=== PATIENT | male | born 1970 | race African-American/Black ===

== ENCOUNTER 2016-07-17 04:40 | Emergency (ER) | payer OTHER ==
[2016-07-17 05:17] VITALS: PULSE 76; TEMP 97.8; BMI 26.6
[2016-07-17] MEDS ORDERED: METOPROLOL TARTRATE 50 MG TABLET (FP) ONE (05:35)
[2016-07-17] MEDS ORDERED: METOPROLOL TARTRATE 50 MG TABLET (FP) PO ONE (05:35)
--- NOTE | 2016-07-17 05:35 | PDOC ---
History of Present Illness - General History Source: Patient Exam Limitations: No Limitations - History of Present Illness Initial Comments: 07/17/16 06:00 The patient is a 46 year old male with significant past medical history of hypertension, hyperlipidemia and gerd who presents to the ED for eye itchiness, pain, redness and some swelling prior to arrival. Patient reports he was in his usual state of health prior to going to bed last night when he was awoken from his sleep with the sensation of itchiness and pressure behind the eyes. States never experiencing this in the past. Denies headache. Patient reports the pressure behind his eyes endorses nausea and slight blurred vision. Denies vomiting. He does not wear glasses. Also reports pressure in the nose. Denies nasal congestion or rhinorrhea. The patient denies fever, chills, cough, SOB, chest pain, abdominal pain and diarrhea. Allergies: NKDA Social History: No alcohol, tobacco, or drug use reported. Past Surgical History: None reported PCP: Dr. Florence Villaseñor <Whitley Kearney - Last Filed: 07/17/16 06:39> - General History Source: Patient <Deric Ngo - Last Filed: 07/17/16 07:03> - General Chief Complaint: Allergic Reaction Stated Complaint: EYE PROBLEM Time Seen by Provider: 07/17/16 05:35 Past History <Whitley Kearney - Last Filed: 07/17/16 06:39> - Past Medical History Cardiac Disorders: Yes (PT. CANNOT DESCRIBE/CVA,TIA) CVA: Yes GI Disorders: Yes (GERD) HTN: Yes Hypercholesterolemia: Yes - Surgical History Cardiac Surgery: Yes (ANGIOCATH) - Psycho/Social/Smoking Cessation Hx Suicidal Ideation: No Smoking History: Unknown if ever smoked Have you smoked in the past 12 months: No Information on smoking cessation initiated: No Hx Alcohol Use: No Drug/Substance Use Hx: No Substance Use Type: None Hx Substance Use Treatment: No <Deric Ngo - Last Filed: 07/17/16 07:03> - Past Medical History Allergies/Adverse Reactions: Allergies Allergy/AdvReac Type Severity Reaction Status Date / Time No Known Allergies Allergy Verified 07/17/16 06:30 Home Medications: Ambulatory Orders Atorvastatin Ca [Lipitor] 40 mg PO HS 11/07/14 Metoprolol Tartrate [Lopressor] 100 mg PO DAILY 11/07/14 Aspirin [Ecotrin] 81 mg PO DAILY #0 11/08/14 Loratadine [Claritin -] 10 mg PO DAILY 11/08/14 Omeprazole [Prilosec (RX)] 20 mg PO BID #0 11/08/14 Review of Systems - Review of Systems Able to Perform ROS?: Yes Comments:: 07/17/16 06:02 CONSTITUTIONAL: Absent: fever, no chills, no fatigue EYES: +eye itchiness, pain, redness, some swelling and some blurred vision ENT: +pressure in the nose Absent: ear pain, no sore throat CARDIOVASCULAR: Absent: chest pain, no palpitations RESPIRATORY: Absent: cough, no SOB GI: +nausea Absent: abdominal pain, no vomiting, no constipation, no diarrhea GENITOURINARY: Absent: dysuria, no frequency, no hematuria MUSCULOSKELETAL: Absent: back pain, no arthralgia, no myalgia SKIN: Absent: rash NEURO: Absent: headache <Whitley Kearney - Last Filed: 07/17/16 06:39> *Physical Exam - Vital Signs Last Vital Signs Temp Pulse Resp BP Pulse Ox 97.8 F 76 18 144/108 97 07/17/16 05:12 07/17/16 05:12 07/17/16 05:12 07/17/16 05:12 07/17/16 05:12 - Physical Exam Comments: 07/17/16 06:02 GENERAL: Well-appearing, well-nourished. Mild distress. HEENT: Normocephalic, atraumatic. PERRL, EOM intact. Photophobia. Bilateral eye erythema, lacrimation, no discharge CARDIOVASCULAR: Normal S1, S2. Regular rate and rhythm. PULMONARY: Clear to auscultation bilaterally. ABDOMEN: Soft, non-distended, non-tender. EXTREMITIES: Normal ROM in all four extremities. No gross deformities. SKIN: Warm, dry. No rash NEUROLOGICAL: No focal neurological deficits. <Whitley Kearney - Last Filed: 07/17/16 06:39> - Vital Signs Last Vital Signs Temp Pulse Resp BP Pulse Ox 97.8 F 76 18 144/108 97 07/17/16 05:12 07/17/16 05:12 07/17/16 05:12 07/17/16 05:12 07/17/16 05:12 <Deric Ngo - Last Filed: 07/17/16 07:03> ED Treatment Course - RADIOLOGY Radiograph Interpretation: 07/17/16 06:39 EXAM: CT brain without contrast Reviewed by Imaging front desk team member: FINDINGS: No acute intracranial abnormality. No hemorrhage. No visible infarct or mass. Small density in the periphery of the left temporal lobe measures 134 Hounsfield units on thin coronal sections and is therefore calcium and not blood. Lateral ventricles are asymmetric in size. This is usually a congenital phenomenon. - Medications Given in the ED: ED Medications Discontinued Medications Generic Name Dose Route Start Last Admin Trade Name Freq PRN Reason Stop Dose Admin Metoprolol Tartrate 50 mg 07/17/16 05:35 07/17/16 05:38 Lopressor - PO 07/17/16 05:36 50 mg ONCE ONE Administration <Whitley Kearney - Last Filed: 07/17/16 06:39> Medical Decision Making - Medical Decision Making 07/17/16 07:03 Dr. Ngo: The scribe's documentation has been prepared under my direction and personally reviewed by me in its entirery. I confirm that the note above accurately reflects all work, treatment, procedures, and medical decision making performed by me. <Deric Nog - Last Filed: 07/17/16 07:03> *DC/Admit/Observation/Transfer - Attestations Scribe Attestion: 07/17/16 06:02 Documentation prepared by Whitley Kearney, acting as medical art therapist for Deric Ngo MD/DO. <Whitley Kearney - Last Filed: 07/17/16 06:39> - Discharge Dispostion Admit: No <Deric Ngo - Last Filed: 07/17/16 07:03> Diagnosis at time of Disposition: Conjunctivitis Qualifiers: Conjunctivitis type: unspecified Laterality: bilateral Qualified Code(s): H10.9 - Unspecified conjunctivitis - Discharge Dispostion Disposition: HOME Condition at time of disposition: Stable - Referrals Referrals: Florence Andrews MD [Primary Care Provider] - Roc Bryan MD [Staff Physician] - - Patient Instructions Printed Discharge Instructions: DI for Conjunctivitis Additional Instructions: Keep hand clean and dry. Use medication three times a day. Follow up with the doctor referred to you today by Thursday if symptoms don't improve Print Language: KYRGYZ
[2016-07-17] MEDS ORDERED: MECLIZINE HCL 25 MG TABLET (FP) PO STA (06:07)
[2016-07-17] MEDS ORDERED: MECLIZINE HCL 25 MG TABLET (FP) ONE (06:08)
[2016-07-17] MEDS ORDERED: CIPROFLOXACIN HCL 0.3% OPHTH 2.5ML BOTTLE ONE (06:58)
[2016-07-17] MEDS ORDERED: CIPROFLOXACIN 0.3% EYE DROPS 5 ML BOTTLE OU SCH (07:00)
[2016-07-17 07:07] VITALS: BP 123/81
== END 2016-07-17 07:13 | disposition home or self-care (01) ==
LOC: JER 04:40
DX: H10.33 Unspecified acute conjunctivitis, bilateral (principal); I10 Essential (primary) hypertension; E78.00 Pure hypercholesterolemia, unspecified; K21.9 Gastro-esophageal reflux disease without esophagitis; Z86.73 Personal history of transient ischemic attack (TIA), and cerebral infarction without residual deficits
CPT/HCPCS: 70450-TC; 99282-25

== ENCOUNTER 2016-11-13 05:27 | Observation (INO) | payer OTHER ==
[2016-11-13] MEDS ORDERED: morphine CARPU-JECT 2 MG/1 ML DISP.SYRIN IVPUSH ONE (05:56)
[2016-11-13] MEDS ORDERED: SODIUM CHLORIDE 1,000 ML IV STA (05:56)
[2016-11-13] MEDS ORDERED: ONDANSETRON 4 MG/2 ML VIAL IVPUSH ONE (05:56)
--- NOTE | 2016-11-13 06:00 | PDOC ---
ED Treatment Course - LABORATORY CBC & Chemistry Diagram: 11/13/16 05:56 11/13/16 11:50 Medical Decision Making - Medical Decision Making 11/13/16 06:00 agree with care from PILOT PLANT OPERATOR HELPER Oj *DC/Admit/Observation/Transfer Diagnosis at time of Disposition: Chest pain - Discharge Dispostion Condition at time of disposition: Stable
[2016-11-13 06:06] LABS: BASOPHIL 0.5 % (0-2.0); EOSINOPHIL 1.5 % (0-4.5); MCH 30.7 pg (25.7-33.7); MCHC 34.2 g/dl (32.0-35.9); MEAN CELL VOLUME 89.8 fl (80-96); MEAN PLT VOLUME 8.3 fl (7.5-11.1); PLATELET COUNT 178 K/MM3 (134-434); RDW 12.9 % (11.9-15.9)
[2016-11-13 06:18] LABS: INR 1.06 (0.82-1.09); PROTHROMBIN TIME (PATIENT) 11.7 SEC (9.98-11.88)
[2016-11-13] MEDS ORDERED: ONDANSETRON 4 MG/2 ML VIAL ONE (06:19)
[2016-11-13] MEDS ORDERED: morphine CARPU-JECT 2 MG/1 ML DISP.SYRIN ONE (06:19)
[2016-11-13 06:21] LABS: ACTIVATED PTT 37.5 SECONDS (26.9-34.4)
[2016-11-13 06:29] LABS: ALBUMIN 3.9 g/dl (3.4-5.0); ANION GAP 8 (8-16); BILIRUBIN,TOTAL 0.5 mg/dL (0.2-1.0); CALCIUM 8.5 mg/dL (8.5-10.1); CO2 25 mmol/L (21-32); GLUCOSE,RANDOM 103 mg/dL (74-106); SGOT/AST 16 U/L (15-37); SGPT/ALT 50 U/L (12-78); TOT PROT 6.8 g/dl (6.4-8.2)
[2016-11-13] MEDS ORDERED: ASPIRIN 81 MG CHEWABLE TABLETS PO ONE (06:30)
--- NOTE | 2016-11-13 06:31 | PDOC ---
History of Present Illness - General Chief Complaint: Chest Pain Stated Complaint: PAIN UNDER ARM Time Seen by Provider: 11/13/16 05:39 History Source: Patient, Dietary Worker Used Exam Limitations: Language Barrier - History of Present Illness Initial Comments: 11/13/16 06:27 46yo Male patient w/ PmHx: HTN, HLD, 1 Stent placement (2000) presents to ED c/ o CP with left arm pain, sweating and nausea which began at 11pm, but worsened throughout the night. Patient states traveling to [facility] 6 months ago, return 1 month ago. He states he does not have a PCP at this time. Patient also took 2 baby ASA prior to arrival. He denies Abd pain, vomiting, diarrhea, fever , diff breathing, rash, or any other complaints at this time. Presenting Symptoms: Chest Pain, Nausea Timing/Duration: reports: constant, getting worse Severity/Quality: reports: mild Location: reports: substernal, back Chest Pain Radiation: reports: back Activities at Onset: reports: no specific activity Prior Chest Pain/Cardiac Workup: reports: Cardiac Cath Modifying Factors: worse with: antacids, breathing, coughing, defecating, eating , exercise, lying down, morphine, movement, nitroglycerin, oxygen, palpation, rest, other Nitro Today/Relief: No: no nitro taken today, 0.4 mg x 1, 0.4 mg x 2, 0.4 mg x 3 , 0.4 mg x 4, provided by EMS, provided by ED, provided at home, no relief, mild relief, complete relief Aspirin Received prior to arrival (Core Measure): Yes: 81 mg x 2, provided at home ASA Contraindications (Core Measure): No: Allergy, Other, Active Blding w/i 24 hrs., Plavix, Receiving Warfarin Beta John given by EMS (Core Measure): No Beta John taken at Home (Core Measure): No Past History - Travel Traveled outside of the country in the last 30 days: No Close contact w/someone who was outside of country & ill: No - Past Medical History Allergies/Adverse Reactions: Allergies Allergy/AdvReac Type Severity Reaction Status Date / Time No Known Allergies Allergy Verified 07/17/16 06:30 Home Medications: Ambulatory Orders Aspirin [Ecotrin] 81 mg PO DAILY #0 11/08/14 Metoprolol Tartrate 50 mg PO BID 08/31/17 Cardiac Disorders: Yes (PT. CANNOT DESCRIBE/CVA,TIA) CVA: Yes GI Disorders: Yes (GERD) HTN: Yes Hypercholesterolemia: Yes - Surgical History Cardiac Surgery: Yes (ANGIOCATH) - Immunization History Immunization Up to Date: No - Psycho/Social/Smoking Cessation Hx Suicidal Ideation: No Smoking History: Never smoked Have you smoked in the past 12 months: No Number of Cigarettes Smoked Daily: 0 Information on smoking cessation initiated: No Hx Alcohol Use: No Drug/Substance Use Hx: No Substance Use Type: None Hx Substance Use Treatment: No Cardiac Specific PMH - Complaint Specific PMHX Abdominal Aortic Aneurysm: No Angina: No Cardiac Arrhythmia: No Cardiac Stent: Yes GERD: No Myocardial Infarction: Yes Pacemaker: No Pulmonary Embolus: No Valvular Heart Disease: No Peripheral Vascular Disease: No Review of Systems - Review of Systems Able to Perform ROS?: Yes Is the patient limited Slovenian proficient: Yes Constitutional: No: Chills, Fever Respiratory: No: Cough, Shortness of Breath, SOB with Exertion, Wheezing Cardiac (ROS): Yes: Chest Pain, Chest Tightness. No: Edema, Irregular Heart Rate, Lightheadedness, Palpitations, Syncope ABD/GI: Yes: Nausea. No: Constipated, Diarrhea, Poor Appetite, Poor Fluid Intake, Vomiting : No: Dysuria, Discharge, Flank Pain, Hematuria, Urgency Musculoskeletal: No: Back Pain Integumentary: Yes: Sweating. No: Bruising, Erythema Neurological: No: Headache, Numbness, Paresthesia, Seizure, Tingling, Tremors, Weakness, Unsteady Gait, Ataxia All Other Systems: Reviewed and Negative *Physical Exam - Vital Signs Last Vital Signs Temp Pulse Resp BP Pulse Ox 97.3 F L 85 16 136/93 100 11/13/16 05:57 11/13/16 05:57 11/13/16 05:57 11/13/16 05:57 11/13/16 05:57 - Physical Exam General Appearance: Yes: Nourished, Appropriately Dressed. No: Apparent Distress, Mild Distress, Moderate Distress, Severe Distress HEENT: positive: EOMI, LUCHO, Normal ENT Inspection, Normal Voice, Symmetrical, TMs Normal, Pharynx Normal. negative: Pharyngeal Erythema, Tonsillar Exudate, Tonsillar Erythema, Nasal Congestion, Rhinorrhea, Sinus Tenderness, TM Bulging, TM Dull, TM Erythema Neck: positive: Trachea midline, Supple. negative: Tender, Normal Thyroid, Rigid, Decreased range of motion, Stridor, Lymphadenopathy (R), Lymphadenopathy (L), Tender lateral, Tender midline Respiratory/Chest: positive: Lungs Clear, Normal Breath Sounds. negative: Chest Tender, Respiratory Distress, Accessory Muscle Use, Labored Respiration, Rapid RR Cardiovascular: positive: Regular Rhythm, Regular Rate Gastrointestinal/Abdominal: positive: Normal Bowel Sounds, Soft. negative: Increased Bowel Sounds, Distended, Guarding, Rebound, Tenderness Musculoskeletal: positive: Normal Inspection. negative: CVA Tenderness Extremity: positive: Normal Capillary Refill, Normal Inspection, Normal Range of Motion. negative: Pedal Edema, Swelling, Calf Tenderness, Erythema, Inflammation Integumentary: positive: Normal Color, Dry, Warm Neurologic: positive: block press operator II-XII NML intact, Fully Oriented, Alert, Normal Mood/ Affect, Normal Response, Motor Strength /5 ED Treatment Course - LABORATORY CBC & Chemistry Diagram: 11/13/16 05:56 11/13/16 05:56 - ADDITIONAL ORDERS Additional order review: Laboratory Results 11/13/16 11/13/16 05:56 05:56 INR 1.06 PTT (Actin FS) 37.5 H Sodium 140 Potassium 3.4 L Chloride 107 Carbon Dioxide 25 Anion Gap 8 BUN 22 H Creatinine 1.0 Creat Clearance w eGFR > 60 Random Glucose 103 Calcium 8.5 Total Bilirubin 0.5 AST 16 ALT 50 Alkaline Phosphatase 83 Creatine Kinase 196 Troponin I < 0.02 Total Protein 6.8 Albumin 3.9 TSH 2.48 11/13/16 05:56 RBC 4.59 MCV 89.8 MCHC 34.2 RDW 12.9 MPV 8.3 Neutrophils % 45.0 Lymphocytes % 43.5 H Monocytes % 9.5 Eosinophils % 1.5 Basophils % 0.5 - RADIOLOGY Radiology Studies Ordered: Category Date Time Status CHEST X-RAY PORTABLE* [RAD] Stat Radiology 11/13/16 05:56 Taken - Medications Given in the ED: ED Medications Discontinued Medications Generic Name Dose Route Start Last Admin Trade Name Freq PRN Reason Stop Dose Admin Aspirin 162 mg 11/13/16 06:30 11/13/16 06:45 Asa - PO 11/13/16 06:31 162 mg ONCE ONE Administration Morphine Sulfate 2 mg 11/13/16 05:56 11/13/16 06:28 Morphine Injection - IVPUSH 11/13/16 05:57 2 mg ONCE ONE Administration Ondansetron HCl 4 mg 11/13/16 05:56 11/13/16 06:28 Zofran Injection IVPUSH 11/13/16 05:57 4 mg ONCE ONE Administration Potassium Chloride 40 meq 11/13/16 06:48 11/13/16 06:52 K-Dur - PO 11/13/16 06:49 40 meq ONCE ONE Administration *DC/Admit/Observation/Transfer Diagnosis at time of Disposition: Chest pain Qualifiers: Chest pain type: unspecified Qualified Code(s): R07.9 - Chest pain, unspecified - Discharge Dispostion Condition at time of disposition: Fair Admit: Yes
[2016-11-13 06:37] LABS: ALK PHOS 83 U/L (45-117); CPK 196 IU/L (39-308); THYROID STIMULATING HORMONE 2.48 uIU/ml (0.358-3.74); TROPONIN I < 0.02 ng/ml (0.00-0.05)
[2016-11-13] MEDS ORDERED: ASPIRIN 81 MG CHEWABLE TABLETS ONE (06:45)
[2016-11-13] MEDS ORDERED: POTASSIUM CHLORIDE TABS 20 MEQ TABLET.ER (FP) PO ONE ×2 (06:48→06:50)
[2016-11-13] MEDS ORDERED: ACETAMINOPHEN 325 MG TABLET (FP) ONE (08:35)
--- NOTE | 2016-11-13 08:37 | HP ---
Admitting History and Physical - Primary Care Physician PCP: Florence Andrews - Admission Chief Complaint: left sided chest pain History of Present Illness: HPI: This 46 year old male with pmhx of HTN, HLD, ASHD s/p [place] x2 stents, ? stents placed to RLE 2000 during angioplasty, presented the ED with left lateral chest pain which began last night. The patient was in his usual state of health when all of a sudden he has left lateral side point tenderness. Currently, in the ED he diaphoretic with chills and shaking. No fever or nausea, vomiting. His pain is acute and localized to under his axilla and is constant. He denies trauma, use of heavy machinery, use of alcohol, smoking, illicit drug use, recent bug bites, difficulty breathing, sob. ED Course: 1. Trop x1 negative 2. EKG sinus rima with non specific t wave abnormality 3. Morphine -->did not alleviate pain, would not give NSAIDs given CAD History Source: Patient, Family Member Limitations to Obtaining History: Language Barrier (lithuanian: used interpretor [id number]) - Past Medical History Cardiovascular: Yes: HTN, Hyperlipdemia - Past Surgical History Additional Past Surgical History: 2000 R lower extremity angioplasty ([place]) - Smoking History Smoking history: Never smoked Have you smoked in the past 12 months: No Aproximately how many cigarettes per day: 0 - Alcohol/Substance Use Hx Alcohol Use: No History of Substance Use: reports: None - Social History Usual Living Arrangement: Yes: With Spouse ADL: Independent Occupation: cook History of Recent Travel: No Home Medications - Allergies Allergies/Adverse Reactions: Allergies Allergy/AdvReac Type Severity Reaction Status Date / Time No Known Allergies Allergy Verified 07/17/16 06:30 - Home Medications Home Medications: Ambulatory Orders Aspirin [Ecotrin] 81 mg PO DAILY #0 11/08/14 Metoprolol Tartrate 50 mg PO BID 11/13/16 Review of Systems - Review of Systems Constitutional: reports: Chills Eyes: reports: No Symptoms HENT: reports: No Symptoms Neck: reports: No Symptoms Cardiovascular: reports: Chest Pain Respiratory: reports: No Symptoms Gastrointestinal: reports: No Symptoms Genitourinary: reports: No Symptoms Musculoskeletal: reports: No Symptoms Integumentary: reports: No Symptoms Neurological: reports: No Symptoms Endocrine: reports: No Symptoms Hematology/Lymphatic: reports: No Symptoms Psychiatric: reports: No Symptoms Physical Examination Vital Signs: Vital Signs Temperature 97.8 F 11/13/16 07:54 Pulse Rate 52 L 11/13/16 07:54 Respiratory Rate 20 11/13/16 07:54 Blood Pressure 152/97 11/13/16 07:54 O2 Sat by Pulse Oximetry (%) 100 11/13/16 07:54 Constitutional: Yes: Diaphoresis Eyes: Yes: Other HENT: Yes: Atraumatic (eye lid swelling) Neck: Yes: Supple Cardiovascular: Yes: Regular Rate and Rhythm, Bradycardia, Other (left lateral reproducible chest tenderness) Respiratory: Yes: Regular, CTA Bilaterally Gastrointestinal: Yes: Normal Bowel Sounds, Soft Musculoskeletal: Yes: WNL Extremities: Yes: WNL Edema: No Peripheral Pulses WNL: Yes Integumentary: Yes: WNL Neurological: Yes: Alert, Oriented, Cran Nerves II-XII Intact Psychiatric: Yes: Alert, Oriented Labs: CBC, BMP 11/13/16 05:56 11/13/16 05:56 Imaging - Results X-ray: Report Reviewed, Image Reviewed EKG: Report Reviewed Problem List - Problems (1) Chest pain Code(s): R07.9 - CHEST PAIN, UNSPECIFIED Qualifiers: Chest pain type: unspecified Qualified Code(s): R07.9 - Chest pain, unspecified (2) HTN (hypertension) Code(s): I10 - ESSENTIAL (PRIMARY) HYPERTENSION (3) HLD (hyperlipidemia) Code(s): E78.5 - HYPERLIPIDEMIA, UNSPECIFIED Assessment/Plan Assessment: 46 year old male admitted with left lateral chest pain Plan: 1. Chest pain vs costochondritis vs pericarditis - Pain is reproducible - r/o ACS repeat trop @1200 - ECHO today - Telemetry monitoring - Would not give NSAIDs, or steroids - Trial Tylenol prn pain vs additional aspirin prn pain - Well Cleaner Dr. Kaur will obtain records from office 2. HTN - Metoprolol 50mg BID 3. HLD - Simvastatin 80mg HS Visit type - Emergency Visit Emergency Visit: Yes ED Registration Date: 11/13/16 Care time: The patient presented to the Emergency Department on the above date and was hospitalized for further evaluation of their emergent condition. - New Patient This patient is new to me today: Yes Date on this admission: 11/13/16 - Critical Care Critical Care patient: No
[2016-11-13] MEDS: ACETAMINOPHEN 325 MG TABLET (FP) PO PRN ×2 (08:39→18:33)
[2016-11-13 09:08] LABS: URINE APPEARANCE CLEAR; URINE BILIRUBIN NEGATIVE (NEGATIVE); URINE BLOOD 1+ (NEGATIVE); URINE COLOR LTYELLOW; URINE GLUCOSE (UA) NEGATIVE (NEGATIVE); URINE KETONE NEGATIVE (NEGATIVE); URINE LEUK ESTERASE NEGATIVE (NEGATIVE); URINE NITRITE NEGATIVE (NEGATIVE); URINE PROTEIN NEGATIVE (NEGATIVE); URINE UROBILINOGEN NEGATIVE mg/dL (0.2-1.0)
[2016-11-13 09:20] LABS: URINE MUCUS RARE; URINE RBC <1 /hpf (0-3); URINE WBC 1 /hpf (3-5)
[2016-11-13] MEDS ORDERED: ASPIRIN COATED 81 MG TABLET.EC ONE (09:44)
[2016-11-13] MEDS ORDERED: HEPARIN NA (PORCINE) 5,000 UNITS/ML 1ML VIAL ONE (09:45)
[2016-11-13] MEDS: HEPARIN NA (PORCINE) 5,000 UNITS/ML 1ML VIAL SQ SCH ×2 (09:55→18:29)
[2016-11-13] MEDS ORDERED: ASPIRIN COATED 81 MG TABLET.EC PO SCH (10:00)
[2016-11-13] MEDS ORDERED: METOPROLOL TARTRATE 50 MG TABLET (FP) PO SCH ×2 (10:00)
--- NOTE | 2016-11-13 10:41 | CON.CARD ---
Consult Consult Specialty:: cardiology Reason for Consultation:: chest pain - History of Present Illness Chief Complaint: Pt sitting up in bed; no chest pain since he "received an injection in the belly" (Lovenox) History of Present Illness: 46yo Male patient ([facility]) w/ PmHx: HTN, HLD, ?one or two coronary Stents placement (2000), family hx CAD (father had CABG in his 60s, several weeks ago after ?2nd [place]; sister in her sleep at 60 yrs old of "the heart"), anxiety, presents to ED c/o left anterior CP with left arm pain, sweating and nausea which began at 11pm, waking him up, and worsened throughout the night. He has had this type of pain (moderately intense, stabbing, worse if he moves left arm) relatively frequently over the past several months. He works part-time as a cook; the pain can start at rest, but also while working. He wonders if it is related to indigestion he often gets. He does little in the way of exercise, and says he is "lazy". Patient states traveling to [facility] 6 months ago, returned 1 month ago. He states he does not have a PCP at this time. Patient also took 2 baby ASA prior to arrival. Pt's say pt's father several weeks ago in [facility]; pt has been depressed since then. Presenting Symptoms: Chest Pain, Nausea Timing/Duration: reports: constant, getting worse Severity/Quality: reports: mild Location: reports: substernal, back Chest Pain Radiation: reports: back Activities at Onset: reports: no specific activity Prior Chest Pain/Cardiac Workup: reports: Cardiac Cath - History Source History Provided By: Patient, Family Member, Medical Record Limitations to Obtaining History: No Limitations - Past Medical History Cardio/Vascular: Yes: HTN, Hyperlipdemia Pulmonary: No: Asthma Psych: Yes: Anxiety, Depression - Past Surgical History Past Surgical History: Yes: Stent - Alcohol/Substance Use Hx Alcohol Use: No History of Substance Use: reports: None - Smoking History Smoking history: Never smoked Have you smoked in the past 12 months: No Aproximately how many cigarettes per day: 0 - Social History Usual Living Arrangement: With Spouse ADL: Independent Occupation: cook History of Recent Travel: No Home Medications - Allergies Allergies/Adverse Reactions: Allergies Allergy/AdvReac Type Severity Reaction Status Date / Time No Known Allergies Allergy Verified 07/17/16 06:30 - Home Medications Home Medications: Ambulatory Orders Aspirin [Ecotrin] 81 mg PO DAILY #0 11/08/14 Metoprolol Tartrate 50 mg PO BID 11/13/16 Family Disease History - Family Disease History Family Disease History: Heart Disease: Father ([place]; CABG in his 60s; recently in his 80s of ?[place]), Sister ( in her sleep at 60 yrs old) Review of Systems - Review of Systems Constitutional: reports: No Symptoms Eyes: reports: No Symptoms HENT: reports: No Symptoms Neck: reports: No Symptoms Cardiovascular: reports: Chest Pain Respiratory: reports: No Symptoms Gastrointestinal: reports: Indigestion Genitourinary: reports: No Symptoms Breasts: reports: No Symptoms Reported Musculoskeletal: reports: Other (chronic bilateral pains throughout legs when he walks; he says this has been worked up, and is due to "arthritis") Integumentary: reports: No Symptoms Neurological: reports: No Symptoms Endocrine: reports: No Symptoms Hematology/Lymphatic: reports: No Symptoms Psychiatric: reports: Anxiety, Depression - Risk Factors Known Risk Factors: Yes: Age, Family History, Gender, Hypercholesterolemia, Hypertension, Physical Inactivity Vital Signs: Vital Signs Temperature 98.1 F 11/13/16 09:57 Pulse Rate 76 11/13/16 09:57 Respiratory Rate 18 11/13/16 09:57 Blood Pressure 115/91 11/13/16 09:57 O2 Sat by Pulse Oximetry (%) 97 11/13/16 09:57 Constitutional: Yes: Anxious Eyes: Yes: WNL HENT: Yes: WNL Neck: Yes: WNL Respiratory: Yes: WNL Gastrointestinal: Yes: WNL Cardiovascular: Yes: Regular Rate and Rhythm JVD: No Carotid Bruit: No PMI: Non-Displaced Heart Sounds: Yes: S1, S2, S4 Musculoskeletal: Yes: Muscle Pain Extremities: Yes: WNL Edema: No Peripheral Pulses WNL: Yes Integumentary: Yes: WNL Neurological: Yes: WNL Psychiatric: Yes: WNL - Other Data Labs, Other Data: CBC, BMP 11/13/16 05:56 11/13/16 05:56 INR, PTT INR 1.06 (0.82-1.09) 11/13/16 05:56 Troponin, BNP 11/13/16 05:56 Troponin I < 0.02 Troponin, BNP 11/13/16 05:56 Troponin I < 0.02 Abnormal Lab Results 11/13/16 11/13/16 11/13/16 05:56 05:56 05:56 Lymphocytes % 43.5 H PTT (Actin FS) 37.5 H Potassium 3.4 L Chloride BUN 22 H Calcium Urine Blood 11/13/16 11/13/16 09:00 11:50 Lymphocytes % PTT (Actin FS) Potassium Chloride 110 H BUN Calcium 8.2 L Urine Blood 1+ H Ejection Fraction %: LVEF > or = 40 % Imaging - Results Chest X-ray: Image Reviewed (no acute pathology) Ultrasound: Report Reviewed (normal LVEF on ECHO; mild valvular disease) Problem List - Problems (1) Chest pain Assessment/Plan: Atypical presentation (off and on for months; point-like chest pain worsened with movement, may last for days.). TNI < 0.02 x 2; EKG unchanged from office EKG (NSR; nonspecific T wave changes). Plan: stress treadmill test today; if negative, may be followed up as oupt from cardiac standpoint. Addendum: stress treadmill showed good exercise capacity and tolerance; mildly suboptimal HR achieved, likely due to beta blockers. No evidence of myocardial ischemia or arrhythmias. F/u lipids. F/u as outpatient. Code(s): R07.9 - CHEST PAIN, UNSPECIFIED Qualifiers: Chest pain type: unspecified Qualified Code(s): R07.9 - Chest pain, unspecified (2) HLD (hyperlipidemia) Code(s): E78.5 - HYPERLIPIDEMIA, UNSPECIFIED (3) HTN (hypertension) Assessment/Plan: on metoprolol. f/u BP and HR serially. Code(s): I10 - ESSENTIAL (PRIMARY) HYPERTENSION (4) S/P coronary angiogram Assessment/Plan: 2001: ? 1-2 coronary PCIs.
--- NOTE | 2016-11-13 11:09 | EKG ---
Test Reason : Blood Pressure : / mmHG Vent. Rate : 054 BPM Atrial Rate : 054 BPM P-R Int : 140 ms QRS Dur : 078 ms QT Int : 464 ms P-R-T Axes : 052 045 043 degrees QTc Int : 440 ms SINUS BRADYCARDIA OTHERWISE NORMAL ECG WHEN COMPARED WITH ECG OF 06-APR-2001 11:13, MINIMAL CRITERIA FOR INFERIOR INFARCT ARE NO LONGER PRESENT NONSPECIFIC T WAVE ABNORMALITY HAS REPLACED INVERTED T WAVES IN INFERIOR LEADS Confirmed by ISABEL SHARMA, GUNNER ([id number]) on 11/13/2016 11:09:33 AM Referred By: Confirmed By:GUNNER HALL MD
[2016-11-13] MEDS ORDERED: ASPIRIN 325 MG ENTERIC COATED TABLET (FP) PO SCH (12:26)
[2016-11-13 12:29] LABS: ANION GAP 9 (8-16); CALCIUM 8.2 mg/dL (8.5-10.1); CO2 23 mmol/L (21-32); CREATININE 0.8 mg/dL (0.7-1.3); GLUCOSE,RANDOM 104 mg/dL (74-106)
[2016-11-13 12:31] LABS: TROPONIN I < 0.02 ng/ml (0.00-0.05)
[2016-11-13 12:34] LABS: CPK 239 IU/L (39-308)
--- NOTE | 2016-11-13 15:43 | TRE ---
Protocol Name : NEEL Max Work Load (METS*10) : 130 Time In Exercise Phase : 00:10:47 Max. Systolic BP : 128 mmHg Max Diastolic BP : 80 mmHg Max Heart Rate : 134 BPM Max Predicted Heart Rate : 174 BPM Attending Physician : Reason For Termination : Fatigue Reason for Test : CHEST PAIN Stress Protocol : NEEL Rest HR : 56 BPM PeakEx METs : 13.0 METS Recovery ECG Response (OLD) : Diagnosis : Patient exercised 10:47 minutes reaching 77% MPHR, 13 mets. Patient is on metoprolol and at baseline had sinus bradycardia and this likely resulted in the blunted HR response to exercise. No chest pain or anginal symptoms, exercise stopped due to fatigue. Normal BP response to exercise. No ischemic ecg changes or arrhythmias. No ischemic ecg findings at heart rate achieved (only 77% MPHR). Confirmed by GUNNER HALL MD (2014) on 11/13/2016 3:43:22 PM
[2016-11-13 17:59] VITALS: BP 113/68; PULSE 57; TEMP 98.7; BMI 29.3
--- NOTE | 2016-11-13 18:31 | DS ---
Physical Exam: SUBJECTIVE: Patient seen and examined. See H and P OBJECTIVE: Vital Signs Period Temp Pulse Resp BP Sys/Donnelly Pulse Ox Last 24 Hr 97.8 F-98.7 F 52-76 17-20 111-152/68-97 97-100 See H and P Laboratory Results - last 24 hr 11/13/16 11/13/16 09:00 11:50 Sodium 142 Potassium 4.7 D Chloride 110 H Carbon Dioxide 23 Anion Gap 9 BUN 18 Creatinine 0.8 Random Glucose 104 Calcium 8.2 L Creatine Kinase 239 Creatine Kinase Index 0.5 CK-MB (CK-2) 1.2 Troponin I < 0.02 Urine Color Ltyellow Urine Appearance Clear Urine pH 7.0 Ur Specific [place] 1.015 Urine Protein Negative Urine Glucose (UA) Negative Urine Ketones Negative Urine Blood 1+ H Urine Nitrite Negative Urine Bilirubin Negative Urine Urobilinogen Negative Ur Leukocyte Esterase Negative Urine RBC <1 Urine WBC 1 Urine Mucus Rare HOSPITAL COURSE: Date of Admission:11/13/16 Date of Discharge: 11/13/16 Minutes to complete discharge: 37 Discharge Summary Reason For Visit: CHEST PAIN Current Active Problems Chest pain (Acute) HLD (hyperlipidemia) (Acute) HTN (hypertension) (Acute) S/P coronary angiogram (Acute) Hospital Course: Initial Hospital Course: Briefly, this 46 year old male with pmhx of HTN, HLD, ASHD s/p [place] x2 stents, ? stents placed to RLE 2000 during angioplasty vs coronary, presented the ED with left lateral/anterior chest pain which began last night with sweating and nausea which worsened arount 2am. The patient was in his usual state of health when all of a sudden he has left lateral side point tenderness. While in ED with chills and shaking. His pain is acute and localized to under his axilla and is constant. Pt has family hx of CAD father CABG in 60's, sister of [place] in her sleep Per cardiology eval pt pain is stabbing and worsened with moving his left arm pain is at rest and while cooking. Subsequent hospital Course/Discharge Summary: Atypical CP vs costochondritis - Serial trops negative - Lipid panel f/u as outpt (drawn here) - Stress test treadmill showed good exercise capacity and tolerance; mildly sub optimal HR achieved, likely due to beta blockers. No evidence of myocardial ischemia or arrhythmias. - Outpt follow up with Dr. Kaur, aware of plan - Resume home medications as directed - Tylenol PRN pain, aware Condition: Stable - Instructions Diet, Activity, Other Instructions: Please return for any, new, persistent, or worsening symptoms. Follow Referrals: Denys Kaur MD [Staff Physician] - Florence Andrews MD [Primary Care Provider] - Disposition: HOME - Home Medications Comprehensive Discharge Medication List: Ambulatory Orders Aspirin [Ecotrin] 81 mg PO DAILY #0 11/08/14 Metoprolol Tartrate 50 mg PO BID 11/13/16 Problem List - Problems (1) Chest pain Code(s): R07.9 - CHEST PAIN, UNSPECIFIED Qualifiers: Chest pain type: unspecified Qualified Code(s): R07.9 - Chest pain, unspecified (2) HTN (hypertension) Code(s): I10 - ESSENTIAL (PRIMARY) HYPERTENSION (3) HLD (hyperlipidemia) Code(s): E78.5 - HYPERLIPIDEMIA, UNSPECIFIED This patient is new to me today: No Emergency Visit: Yes ED Registration Date: 11/13/16 Care time: The patient presented to the Emergency Department on the above date and was hospitalized for further evaluation of their emergent condition. Critical Care patient: No - Discharge Referral Referred to [facility] No
[2016-11-13 20:33] LABS: CHOLESTEROL 186 mg/dL (50-200); LDL CHOLESTEROL (ONLY SJRH) 133 mg/dL (5-100)
== END 2016-11-13 21:57 | disposition home or self-care (01) ==
LOC: JER 05:27 → JERBED 06:55 → J4W 17:35
PROVIDERS: ADMIT Internal Medicine; ATTEND Nurse Practitioner Acute Care
PROC: 3E033GC Introduction of Other Therapeutic Substance into Peripheral Vein, Percutaneous Approach (ICD-10-PCS; principal; 2016-11-13)
PROC: 3E013GC Introduction of Other Therapeutic Substance into Subcutaneous Tissue, Percutaneous Approach (ICD-10-PCS; 2016-11-13)
PROC: 3E0337Z Introduction of Electrolytic and Water Balance Substance into Peripheral Vein, Percutaneous Approach (ICD-10-PCS; 2016-11-13)
DX: R07.9 Chest pain, unspecified (principal); I10 Essential (primary) hypertension; I25.10 Atherosclerotic heart disease of native coronary artery without angina pectoris; I25.2 Old myocardial infarction; E78.5 Hyperlipidemia, unspecified; K21.9 Gastro-esophageal reflux disease without esophagitis; Z86.73 Personal history of transient ischemic attack (TIA), and cerebral infarction without residual deficits; Z95.5 Presence of coronary angioplasty implant and graft; Z79.82 Long term (current) use of aspirin
CPT/HCPCS: 36415; 71010-TC; 80048; 80053; 80061; 81003; 81015; 82553; 83721; 84443; 84484; 85025; 85610; 85730; 93005; 93010; 93017; 93018; 93306-TC; 99284-25; G0378; J1644

== ENCOUNTER 2019-04-11 10:54 | Emergency (ER) | payer OTHER ==
[2019-04-11 10:59] VITALS: BP 134/84; PULSE 81; TEMP 99.6; BMI 33.2
--- NOTE | 2019-04-11 12:36 | PDOC ---
History of Present Illness - General Chief Complaint: Cold Symptoms Stated Complaint: COLD SYMPTOMS Time Seen by Provider: 04/11/19 11:49 History Source: Patient Exam Limitations: Clinical Condition - History of Present Illness Initial Comments: 04/11/19 12:31 Patient with no significant past medical history present with complaint of 8 days history of nasal congestion, body aches, runny nose, headache, tactile fever and persistent cough. Patient's home sick with similar symptoms. Patient has not been taking anything for symptoms except Tylenol. Denies any recent travel. Denies any other symptoms Is this a multiple visit Asthma Patient?: No Timing/Duration: 1 week Past History - Past Medical History Allergies/Adverse Reactions: Allergies Allergy/AdvReac Type Severity Reaction Status Date / Time No Known Allergies Allergy Verified 07/17/16 06:30 Home Medications: Ambulatory Orders Aspirin [Ecotrin] 81 mg PO DAILY #30 tab 11/13/16 Metoprolol Tartrate 50 mg PO BID #60 tab 11/13/16 Azithromycin [Zithromax 250mg Tablets -] 250 mg PO UTDICT #6 tab 04/11/19 Benzonatate [Tessalon Pearls -] 100 mg PO Q8H PRN #21 capsule 04/11/19 Ipratropium Brusly 2 spray NS BID PRN 5 Days #1 spray 04/11/19 Methylprednisolone [Medrol Dose Geoffrey] 4 mg PO ASDIR #21 tablet 04/11/19 Cardiac Disorders: Yes (STENT FOR BLOCKAGE IN 2000"HIGH CHOLESTROL") CVA: No COPD: No CHF: No Dementia: No Diabetes: No GI Disorders: Yes ("TOO MUCH ACID") Disorders: No HTN: No Hypercholesterolemia: Yes Liver Disease: No Seizures: No Thyroid Disease: No - Surgical History Cardiac Surgery: Yes (STENT PLACED 2000) - Immunization History Immunization Up to Date: No - Psycho Social/Smoking Cessation Hx Smoking History: Never smoked Have you smoked in the past 12 months: No Number of Cigarettes Smoked Daily: 0 If you are a former smoker, when did you quit?: 0 Cigars Per Day: 0 Information on smoking cessation initiated: No Hx Alcohol Use: No Drug/Substance Use Hx: No Substance Use Type: None Hx Substance Use Treatment: No Review of Systems - Review of Systems Able to Perform ROS?: Yes Is the patient limited [place] proficient: No Constitutional: Yes: Chills, Fever, Malaise HEENTM: Yes: Symptoms Reported, See HPI, Nose Congestion. No: Eye Pain, Blurred Vision, Tearing, Recent change in vision, Double Vision, Cataracts, Ear Pain, Ocular Prothesis, Ear Discharge, Nose Pain, Tinnitus, Nose Bleeding, Hearing Loss, Throat Pain, Throat Swelling, Mouth Pain, Dental Problems, Difficulty Swallowing, Mouth Swelling, Other Respiratory: Yes: Symptoms reported, See HPI, Cough. No: Orthopnea, Shortness of Breath, SOB with Exertion, SOB at Rest, Stridor, Wheezing, Productive cough, Hemoptysis, Other Cardiac (ROS): No: Symptoms Reported, See HPI, Chest Pain, Edema, Irregular Heart Rate, Lightheadedness, Palpitations, Syncope, Chest Tightness, Other ABD/GI: No: Symptoms Reported, See HPI, Constipated, Diarrhea, Nausea, Vomiting , Abdominal cramping : No: Symptoms Reported Musculoskeletal: No: Symptoms Reported Integumentary: No: Symptoms Reported, Rash Neurological: Yes: Symptoms reported, See HPI, Headache. No: Numbness, Paresthesia, Pre-Existing Deficit, Weakness, Unsteady Gait, Dizziness All Other Systems: Reviewed and Negative *Physical Exam - Vital Signs Last Vital Signs Temp Pulse Resp BP Pulse Ox 99.6 F 81 18 134/84 96 04/11/19 10:57 04/11/19 10:57 04/11/19 10:57 04/11/19 10:57 04/11/19 10:57 - Physical Exam 04/11/19 12:35 GENERAL: Well developed, well nourished. Awake and alert. No acute distress. HEENT: Normocephalic, atraumatic. PERRLA, EOMI. No conjunctival pallor. Sclera are non-icteric. Moist mucous membranes. Oropharynx is clear. NECK: Supple. Full ROM. CARDIOVASCULAR: Regular rate and rhythm. No murmurs, rubs, or gallops. Distal pulses are 2+ and symmetric. PULMONARY: No evidence of respiratory distress. Mild expiratory wheeze diffusely. No rales or rhonchi. ABDOMINAL: Soft. Non-tender. Non-distended. No rebound or guarding. No organomegaly. Normoactive bowel sounds. MUSCULOSKELETAL Normal range of motion at all joints. SKIN: Warm and dry. Normal capillary refill. No rashes. No cyanosis. NEUROLOGICAL: Alert, awake, appropriate. Gait is normal without ataxia. PSYCHIATRIC: Cooperative. Good eye contact. Appropriate mood General Appearance: Yes: Nourished, Appropriately Dressed. No: Apparent Distress Medical Decision Making - Medical Decision Making 04/11/19 12:34 Patient with no significant past medical history present with complaint of 8 days history of nasal congestion, body aches, runny nose, headache, tactile fever and persistent cough. Patient's home sick with similar symptoms. Patient has not been taking anything for symptoms except Tylenol. Denies any recent travel. Denies any other symptoms Exam significant for mild expiratory wheeze with no acute respiratory distress. Patient afebrile. Symptoms likely viral URI versus less likely pneumonia. Chest x-ray ordered to rule out pneumonia 04/11/19 12:50 Chest x-ray shows questionable right patchy infiltrate as read by radiologist. Given patient persistent symptoms, will treat for pneumonia on Z-Geoffrey and Tessalon Perles Medrol Geoffrey for cough with Atrovent nasal sprays for nasal congestion with follow-up with rivet machine operator Discharge - Discharge Information Problems reviewed: Yes Clinical Impression/Diagnosis: URI, acute, Cough in adult patient, Malaise Condition: Stable Disposition: HOME - Admission No - Additional Discharge Information Prescriptions: Azithromycin [Zithromax 250mg Tablets -] 250 mg PO UTDICT #6 tab Benzonatate [Tessalon Pearls -] 100 mg PO Q8H PRN #21 capsule PRN Reason: Cough Ipratropium Brus[place] 2 spray NS BID PRN 5 Days #1 spray PRN Reason: nasal congestion Methylprednisolone [Medrol Dose Geoffrey] 4 mg PO ASDIR #21 tablet - Follow up/Referral Referrals: Derrick Perez MD [Staff Physician] - - Patient Discharge Instructions Patient Printed Discharge Instructions: DI for Acute Bronchitis Additional Instructions: Your chest x-ray shows questionable pneumonia but given your symptoms being more than a week, we will treat you with antibiotics. Take prescribed medication as prescribed and finish it. Increase fluid intake. Follow-up with your primary care or referred rivet machine operator if unable to follow-up with primary care. Porter radiografa de trax muestra [place] neumona cuestionable, traci dado que alex sntomas connors ms de [place] semana, lo trataremos con antibiticos. [place] la medicacin prescrita segn lo prescrito y termnela. Aumentar la ingesta de lquidos. Seguimiento con porter atencin primaria o neumlogo derivado si no puede realizar un seguimiento con atencin primaria - Post Discharge Activity
== END 2019-04-11 13:02 | disposition home or self-care (01) ==
LOC: JERFT 10:54
DX: J06.9 Acute upper respiratory infection, unspecified (principal); I25.10 Atherosclerotic heart disease of native coronary artery without angina pectoris; I10 Essential (primary) hypertension; Z95.5 Presence of coronary angioplasty implant and graft; E78.00 Pure hypercholesterolemia, unspecified
CPT/HCPCS: 71046-TC-FY; 99281-25